=== PATIENT | male | born 1980 | race Caucasian/White ===

== ENCOUNTER → 2016-08-30 | Outpatient (CLI) | payer BC | LOC: CARD 14:53 | PROVIDERS: ATTEND Family Medicine | DX: R00.2 Palpitations (principal) | CPT/HCPCS: 93005 ==

== ENCOUNTER 2018-05-25 20:34 | Outpatient (CLI) | payer BC | END 2018-05-26 06:00 | disposition home or self-care (01) | LOC: SLEEP 20:34 | PROVIDERS: ATTEND Family Medicine | DX: G47.33 Obstructive sleep apnea (adult) (pediatric) (principal) | CPT/HCPCS: 95810 ==

== ENCOUNTER 2018-08-10 13:13 | Outpatient (RCR) | payer BC | END 2018-11-08 | disposition home or self-care (01) | LOC: CARD 13:13 | PROVIDERS: ATTEND Internal Medicine Interventional Cardiology | DX: I48.0 Paroxysmal atrial fibrillation (principal); R06.02 Shortness of breath; R00.2 Palpitations ==

== ENCOUNTER → 2018-08-10 | Outpatient (CLI) | payer BC | LOC: CARD 13:05 | PROVIDERS: ATTEND Internal Medicine Interventional Cardiology | DX: I48.0 Paroxysmal atrial fibrillation (principal); R06.02 Shortness of breath; R00.2 Palpitations | CPT/HCPCS: 93306 ==

== ENCOUNTER → 2018-09-28 | Day surgery (SDC) | payer BC ==
[~2018-09-28] VITALS: Ht 182.9 cm; Wt 108.9 kg
[~2018-09-28] MED LIST: LIDOCAINE 1% INJ 20 ML 20 ML VIAL INJ ONE; LIDOCAINE 1% INJ 20 ML 20 ML VIAL ONE
[2018-09-28 07:58] VITALS: BP 141/86
--- OUTSIDE RECORDS SUMMARY | 2018-09-28 08:52 | XMS REPORT | Continuity of Care Document ---
Author Organization Unknown Address Unknown Allergies Active Description Code Type Severity Reaction Onset Reported/Identified Relationship to Patient Clinical Status Yes Penicillins [id number] Drug Allergy Unknown N/A 08/05/2005 Medications There is no data. Problems Date Dx Coded Attending Type Code Diagnosis Diagnosed By 01/22/2015 GURINDER CORREA MD Ot R10.2 01/22/2015 GURINDER CORREA MD Ot R10.30 03/05/2015 GURINDER CORREA MD Ot R10.2 08/31/2016 GURINDER CORREA MD Ot R00.2 PALPITATIONS 09/08/2016 GURINDER CORREA MD Ot R00.2 PALPITATIONS 05/25/2018 GURINDER CORREA MD Ot R10.2 PELVIC AND PERINEAL PAIN 05/25/2018 GURINDER CORREA MD Ot R00.2 PALPITATIONS 05/26/2018 GURINDER CORREA MD Ot G47.33 OBSTRUCTIVE SLEEP APNEA (ADULT) (PEDIATR 05/29/2018 GURINDER CORREA MD Ot G47.33 OBSTRUCTIVE SLEEP APNEA (ADULT) (PEDIATR 05/31/2018 GURINDER CORREA MD Ot G47.33 OBSTRUCTIVE SLEEP APNEA (ADULT) (PEDIATR 08/17/2018 Pardeep CHOPRA MD Ot I48.0 PAROXYSMAL ATRIAL FIBRILLATION 08/17/2018 Pardeep CHOPRA MD Ot R00.2 PALPITATIONS 08/17/2018 Pardeep CHOPRA MD Ot R06.02 SHORTNESS OF BREATH 08/29/2018 Pardeep CHOPRA MD Ot I48.0 PAROXYSMAL ATRIAL FIBRILLATION 08/29/2018 Pardeep CHOPRA MD Ot R00.2 PALPITATIONS 08/29/2018 Pardeep CHOPRA MD Ot R06.02 SHORTNESS OF BREATH Procedures There is no data. Results There is no data. Encounters ACCT No. Visit Date/Time Discharge Status Pt. Type Provider Facility Loc./Unit Complaint [id number] 08/10/2018 13:13:00 08/10/2018 23:59:59 CLS Outpatient Pardeep CHOPRA MD [facility] CARD PALPITATIONS [id number] 08/10/2018 13:05:00 08/10/2018 23:59:59 CLS Outpatient Pardeep CHOPRA MD [facility] CARD PALPITATIONS [id number] 05/25/2018 20:34:00 05/26/2018 06:00:00 DIS Outpatient GURINDER CORREA MD [facility] SLEEP CHASTITY [id number] 08/30/2016 14:53:00 08/30/2016 23:59:59 CLS Outpatient GURINDER CORREA MD [facility] CARD CARDIAC PALPITATION [id number] 01/16/2015 14:12:00 01/16/2015 23:59:59 CLS Outpatient GURINDER CORREA MD [facility] RAD PELVIC/AB PAIN [id number] 09/02/2012 14:42:00 09/02/2012 23:59:59 CLS Outpatient [id number] 09/28/2018 08:30:00 PEN Preadmit Pardeep CHOPRA MD [facility] CATH PAF
[2018-09-28 09:05] VITALS: BP 142/78
--- NOTE | 2018-09-29 15:48 | Implantation of Loop Monitor ---
Implant of Loop Monitior PROCEDURE PHYSICIAN: Crys Chand MD IMPLANTATION OF LOOP MONITOR REPORT DATE OF PROCEDURE: 09/29/18 ATTENDING PHYSICIAN: Dr. Tico Chand. PERFORMING PHYSICIAN: Dr. Tico Chand. INDICATION: Long-term surveillance of atrial fibrillation PREOP DIAGNOSIS: Long-term surveillance of atrial fibrillation POSTOP DIAGNOSIS: Atrial fibrillation, s/p implantation of loop recorder. PROCEDURE DETAILS: The patient is a 37 male with history of paroxysmal atrial fibrillation requiring long-term surveillance. Therefore implantable loop recorder was discussed and agreed with the patient. Informed consent was taken. All risks and complications were discussed at length. The patient was draped and prepped in the usual sterile fashion. Local anesthesia was lidocaine, which was given in the substernal area close to the 4th intercostal space. Loop monitor was implanted according to the protocol. Steri-Strips were placed at the end of the procedure. There were no complications and the patient tolerated the procedure well. ANESTHESIA: Local anesthesia with lidocaine. COMPLICATIONS: None CONTRAST/FLUOROSCOPY: None CONCLUSION: 1. Successful implantation of loop monitor for long-term surveillance of atrial fibrillation. 2. No complication and the patient tolerated the procedure well. Crys Chand MD, [facility], CCDS Cardiac Electrophysiology Pardeep CHAND MD Sep 29, 2018 15:47
== END | disposition home or self-care (01) ==
LOC: CATH 07:36
PROVIDERS: ATTEND Internal Medicine Interventional Cardiology
DX: I48.0 Paroxysmal atrial fibrillation (principal); G47.30 Sleep apnea, unspecified; Z82.49 Family history of ischemic heart disease and other diseases of the circulatory system; Z88.0 Allergy status to penicillin; Z79.82 Long term (current) use of aspirin; Z79.899 Other long term (current) drug therapy
CPT/HCPCS: 33285

== ENCOUNTER 2019-06-03 23:06 | Observation (INO) | payer BC, OTHER ==
[~2019-06-03] VITALS: Ht 182 cm; Wt 110.6 kg
[2019-06-03] MEDS ORDERED: NS IV 1000 ML 1,000 ML IV SCH (23:18)
[2019-06-03] MEDS ORDERED: ASPIRIN 81 MG CHEW (CHILDREN'S ASA) PO ONE (23:30)
[2019-06-03] MEDS ORDERED: ENOXAPARIN 60 MG/0.6 ML (LOVENOX) SYR SC ONE (23:30)
[2019-06-03 23:39] VITALS: BP 119/77
[2019-06-03 23:39] LABS: BASOPHILS % (AUTO) 0 % (0-10); EOSINOPHILS # (AUTO) 0.2 10^3/uL (0.0-0.3); EOSINOPHILS % (AUTO) 2 % (0-10); HEMATOCRIT 45 % (40-54); HEMOGLOBIN 15.2 G/DL (13.3-17.7); LYMPHOCYTES # (AUTO) 2.9 X 10^3 (1.0-4.0); LYMPHOCYTES % (AUTO) 32 % (12-44); MEAN CORPUSCULAR HEMOGLOBIN 29 PG (25-34); MEAN CORPUSCULAR HGB CONC 34 G/DL (32-36); MEAN CORPUSCULAR VOLUME 84 FL (80-99); MEAN PLATELET VOLUME 9.7 FL (7.4-10.4); MONOCYTES # (AUTO) 0.8 X 10^3 (0.0-1.0); MONOCYTES % (AUTO) 9 % (0-12); NEUTROPHILS # (AUTO) 5.2 X 10^3 (1.8-7.8); NEUTROPHILS % (AUTO) 57 % (42-75); PLATELET COUNT 322 10^3/uL (130-400); RED CELL DISTRIBUTION WIDTH 12.7 % (10.0-14.5); WHITE BLOOD COUNT 9.1 10^3/uL (4.3-11.0)
[2019-06-03 23:53] LABS: ALANINE AMINOTRANSFERASE 23 U/L (0-55); ALBUMIN 4.9 GM/DL (3.2-4.5); ALKALINE PHOSPHATASE 108 U/L (40-136); BILIRUBIN,TOTAL 0.5 MG/DL (0.1-1.0); BUN/CREATININE RATIO 18; CALCIUM 9.6 MG/DL (8.5-10.1); CARBON DIOXIDE 24 MMOL/L (21-32); CHLORIDE 104 MMOL/L (98-107); CREATINE KINASE 128 U/L (30-200); CREATININE SERUM 0.93 MG/DL (0.60-1.30); GFR ESTIMATED > 60; GLUCOSE 106 MG/DL (70-105); MAGNESIUM 2.3 MG/DL (1.6-2.4); POTASSIUM 3.8 MMOL/L (3.6-5.0); PROTHROMBIN TIME PATIENT 13.5 SEC (12.2-14.7); SODIUM 140 MMOL/L (135-145); TOTAL PROTEIN 7.7 GM/DL (6.4-8.2)
[2019-06-03 23:56] LABS: BILIRUBIN,URINE NEGATIVE (NEGATIVE); CLARITY,URINE CLEAR; COLOR,URINE YELLOW; GLUCOSE, URINE (UA) NEGATIVE (NEGATIVE); KETONES,URINE NEGATIVE (NEGATIVE); LEUKOCYTE ESTERASE ,URINE NEGATIVE (NEGATIVE); NITRITE,URINE NEGATIVE (NEGATIVE); PH,URINE 6.5 (5-9); PROTEIN,URINE NEGATIVE (NEGATIVE)
[2019-06-04] VITALS (16 sets, daily range): BP systolic 92–126; BP diastolic 59–86
[2019-06-04 00:13] LABS: CREATINE KINASE MB 1.6 NG/ML (<6.6); TSH (THYROID ANALYZER) 4.91 UIU/ML (0.35-4.94)
[2019-06-04 00:15] LABS: AMPHETAMINE SCREEN, URINE NEGATIVE (NEGATIVE); BARBITURATE SCREEN URINE NEGATIVE (NEGATIVE); BENZODIAZEPINES SCREEN URINE NEGATIVE (NEGATIVE); CANNABINOID SCREEN, URINE NEGATIVE (NEGATIVE); COCAINE SCREEN URINE NEGATIVE (NEGATIVE); METHADONE STAT NEGATIVE (NEGATIVE); METHAMPHETAMINE SCREEN URINE S NEGATIVE (NEGATIVE); OPIATE SCREEN URINE NEGATIVE (NEGATIVE); OXYCODONE STAT NEGATIVE (NEGATIVE); PROPOXYPHENE STAT NEGATIVE (NEGATIVE); TRICYCLIC ANTIDEPRESSANTS SCRE NEGATIVE (NEGATIVE)
[2019-06-04] MEDS ORDERED: dilTIAZem DRIP PRE-MIX 125 ML IV SCH (00:15)
[2019-06-04 00:16] LABS: AMORPHOUS SEDIMENT,UR RARE AMOR URATES /LPF; BACTERIA,URINE NEGATIVE /HPF
[2019-06-04] MEDS ORDERED: 1/2 NS IV SOLUTION 1,000 ML IV ONE (01:33)
[2019-06-04] MEDS ORDERED: dilTIAZem DRIP 125 MG/125 ML DRIP IV SCH (02:15)
[2019-06-04] MEDS ORDERED: 1/2 NS IV SOLUTION 1,000 ML IV SCH (02:15)
--- OUTSIDE RECORDS SUMMARY | 2019-06-04 04:12 | XMS REPORT | Continuity of Care Document ---
Author Organization Unknown Address Unknown Phone Unavailable Allergies Active Description Code Type Severity Reaction Onset Reported/Identified Relationship to Patient Clinical Status Yes Penicillins [id number] Drug Aller gy Unknown N/A 08/05/2005 Medications There is no data. Problems Date Dx Coded Attending Type Code Diagnosis Diagnosed By 01/22/2015 GURINDER CORREA MD Ot R10. 2 01/22/2015 GURINDER CORREA MD, Ot R10. 30 03/05/2015 GURINDER CORREA MD Ot R10. 2 08/31/2016 GURINDER CORREA MD Ot R00. 2 PALPITATIONS 09/08/2016 GURINDER CORREA MD Ot R00. 2 PALPITATIONS 05/25/2018 GURINDER CORREA MD Ot R10. 2 PELVIC AND PERINEAL PAIN 05/25/2018 GURINDER CORREA MD Ot R00. 2 PALPITATIONS 05/26/2018 GURINDER CORREA MD, Ot G47. 33 OBSTRUCTIVE SLEEP APNEA (ADULT) (PEDIATR 05/29/2018 GURINDER CORREA MD, Ot G47. 33 OBSTRUCTIVE SLEEP APNEA (ADULT) (PEDIATR 05/31/2018 GURINDER CORREA MD, Ot G47. 33 OBSTRUCTIVE SLEEP APNEA (ADULT) (PEDIATR 08/17/2018 Pardeep CHOPRA MD Ot I48 .0 PAROXYSMAL ATRIAL FIBRILLATION 08/17/2018 Pardeep CHOPRA MD Ot R00 .2 PALPITATIONS 08/17/2018 Pardeep CHOPRA MD Ot R06.02 SHORTNESS OF BREATH 08/29/2018 Pardeep CHOPRA MD Ot I48 .0 PAROXYSMAL ATRIAL FIBRILLATION 08/29/2018 Pardeep CHOPRA MD Ot R00 .2 PALPITATIONS 08/29/2018 Pardeep CHOPRA MD Ot R06.02 SHORTNESS OF BREATH 11/08/2018 Pardeep CHOPRA MD Ot I48 .0 PAROXYSMAL ATRIAL FIBRILLATION 11/08/2018 KEYSHA JIANG, Pardeep PEÑA Ot R00 .2 PALPITATIONS 11/08/2018 Pardeep CHOPRA MD Ot R06.02 SHORTNESS OF BREATH 11/08/2018 Pardeep CHOPRA MD Ot G47.30 SLEEP APNEA, UNSPECIFIED 11/08/2018 KEYSHA JIANG, Pardeep PEÑA Ot I48 .0 PAROXYSMAL ATRIAL FIBRILLATION 11/08/2018 Pardeep CHOPRA MD Ot 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 11/08/2018 Pardeep CHOPRA MD Ot Z79.899 OTHER STANDARD MACHINE STITCHER (CURRENT) DRUG THERAPY 11/08/2018 Pardeep CHOPRA MD Ot Z82.49 FAMILY HX OF ISCHEM HEART DIS AND OTH DI 11/08/2018 Pardeep CHOPRA MD Ot Z88 .0 ALLERGY STATUS TO PENICILLIN 11/08/2018 Pardeep CHOPRA MD Ot G47.30 SLEEP APNEA, UNSPECIFIED 11/08/2018 Pardeep CHOPRA MD Ot I48 .0 PAROXYSMAL ATRIAL FIBRILLATION 11/08/2018 Pardeep CHOPRA MD Ot Z79.82 [facility] (CURRENT) USE OF ASPIRIN 11/08/2018 Pardeep CHOPRA MD Ot Z79.899 OTHER STANDARD MACHINE STITCHER (CURRENT) DRUG THERAPY 11/08/2018 Pardeep CHOPRA MD Ot Z82.49 FAMILY HX OF ISCHEM HEART DIS AND OTH DI 11/08/2018 Pardeep CHOPRA MD Ot Z88 .0 ALLERGY STATUS TO PENICILLIN 11/09/2018 Pardeep CHOPRA MD Ot I48 .0 PAROXYSMAL ATRIAL FIBRILLATION 11/09/2018 Pardeep CHOPRA MD Ot R00 .2 PALPITATIONS 11/09/2018 Pardeep CHOPRA MD Ot R06.02 SHORTNESS OF BREATH 11/22/2018 Pardeep CHOPRA MD Ot G47.30 SLEEP APNEA, UNSPECIFIED 11/22/2018 Pardeep CHOPRA MD Ot I48 .0 PAROXYSMAL ATRIAL FIBRILLATION 11/22/2018 Pardeep CHOPRA MD Ot 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 2 PELVIC AND PERINEAL PAIN 06/04/2019 GURINDER CORREA MD Ot R00. 2 PALPITATIONS 06/04/2019 Pardeep CHOPRA MD Ot I48 .0 PAROXYSMAL ATRIAL FIBRILLATION 06/04/2019 Pardeep CHOPRA MD Ot R00 .2 PALPITATIONS 06/04/2019 Pardeep CHOPRA MD Ot R06.02 SHORTNESS OF BREATH 06/04/2019 Pardeep CHOPRA MD Ot G47.30 SLEEP APNEA, UNSPECIFIED 06/04/2019 Pardeep CHOPRA MD Ot I48 .0 PAROXYSMAL ATRIAL FIBRILLATION 06/04/2019 Pardeep CHOPRA MD Ot Z79.82 [facility] (CURRENT) USE OF ASPIRIN 06/04/2019 Pardeep CHOPRA MD Ot Z79.899 OTHER STANDARD MACHINE STITCHER (CURRENT) DRUG THERAPY 06/04/2019 Pardeep CHOPRA MD Ot Z82.49 FAMILY HX OF ISCHEM HEART DIS AND OTH DI 06/04/2019 Pardeep CHOPRA MD Ot Z88 .0 ALLERGY STATUS TO PENICILLIN 06/04/2019 Pardeep CHOPRA MD Ot I48 .0 PAROXYSMAL ATRIAL FIBRILLATION 06/04/2019 Pardeep CHOPRA MD Ot R00 .2 PALPITATIONS 06/04/2019 Pardeep CHOPRA MD Ot R06.02 SHORTNESS OF BREATH Procedures There is no data. Results Test Result Range Complete blood count (CBC) with automate d white blood cell (WBC) differential - 06/03/19 23:15 Blood leukocytes automated count (number/volume) 9.1 10*3/uL 4.3-11.0 Blood erythrocytes automated count (number/volume) 5.33 10*6/uL 4.35-5.85 Venous blood hemoglobin measurement (mass/volume) 15.2 g/dL 13.3-17.7 Blood hematocrit (volume fraction) 45 % 40-54 Automated erythrocyte mean corpuscular volume 84 [ foz_us] 80-99 Automated erythrocyte mean corpuscular h emoglobin (mass per erythrocyte) 29 pg 25-34 Automated erythrocyte mean corpuscular h emoglobin concentration measurement (mass/volume) 34 g/dL 32-36 Automated erythrocyte distribution width ratio 12. 7 % 10.0- 14.5 Automated blood platelet count (count/volume) 322 10*3/uL 130-400 Automated blood platelet mean volume measurement 9.7 [foz_us] 7.4-10.4 Automated blood neutrophils/100 leukocytes 57 % 42-75 Automated blood lymphocytes/100 leukocytes 32 % 12-44 Blood monocytes/100 leukocytes 9 % 0-12 Automated blood eosinophils/100 leukocytes 2 % 0-10 Automated blood basophils/100 leukocytes 0 % 0-10 Blood neutrophils automated count (number/volume) 5.2 10*3 1.8-7.8 Blood lymphocytes automated count (number/volume) 2.9 10*3 1.0-4.0 Blood monocytes automated count (number/volume) 0. 8 10*3 0.0-1.0 Automated eosinophil count 0.2 10*3/uL 0 .0-0.3 Automated blood basophil count (count/volume) 0.0 10*3/uL 0.0-0.1 Comprehensive metabolic panel - 06/03/19 23:15 Serum or plasma sodium measurement (moles/volume) 140 mmol/L 135-145 Serum or plasma potassium measurement (moles/volume) 3.8 mmol/L 3.6-5.0 Serum or plasma chloride measurement (moles/volume) 104 mmol/L 98-107 Carbon dioxide 24 mmol/L 21-32 Serum or plasma anion gap determination (moles/volume) 12 mmol/L 5-14 Serum or plasma urea nitrogen measurement (mass/volume ) 17 mg/dL 7-18 Serum or plasma creatinine measurement (mass/volume) 0.93 mg/dL 0.60-1.30 Serum or plasma urea nitrogen/creatinine mass ratio 18 NRG Serum or plasma creatinine measurement w ith calculation of estimated glomerular filtration rate > NRG Serum or plasma glucose measurement (mass/volume) 106 mg/dL 70-105 Serum or plasma calcium measurement (mass/volume) 9.6 mg/dL 8.5-10.1 Serum or plasma total bilirubin measurement (mass/volu me) 0.5 mg/dL 0.1-1.0 Serum or plasma alkaline phosphatase dejah surement (enzymatic activity/volume) 108 U/L 40-136 Serum or plasma aspartate aminotransfera se measurement (enzymatic activity/volume) 16 U/L 5-34 Serum or plasma alanine aminotransferase measurement (enzymatic activity/volume) 23 U/L 0-55 Serum or plasma protein measurement (mass/volume) 7.7 g/dL 6.4-8.2 Serum or plasma albumin measurement (mass/volume) 4.9 g/dL 3.2-4.5 Magnesium - 06/03/19 23:15 Magnesium 2.3 mg/dL 1.6-2.4 Serum or plasma creatine kinase measurem ent (enzymatic activity/volume) - 06/03/19 23:15 Serum or plasma creatine kinase measurem ent (enzymatic activity/volume) 128 U/L 30-200 PT panel in platelet poor plasma by coag ulation assay - 06/03/19 23:15 Prothrombin time (PT) in platelet poor plasma by coagu lation assay 13.5 s 12.2-14.7 INR in platelet poor plasma or blood by coagulation as say 1.0 0.8-1.4 Activated partial thromboplastin time (a PTT) in platelet poor plasma bycoagulation assay - 06/03/19 23:15 Activated partial thromboplastin time (a PTT) in platelet poor plasma bycoagulation assay 28 s 24-35 Serum or plasma creatine kinase MB measu rement (enzymatic activity/volume) - 06/03/19 23:15 Serum or plasma creatine kinase MB measu rement (enzymatic activity/volume) 1.6 ng/mL <6.6 Serum or plasma troponin i.cardiac measu rement (mass/volume) - 06/03/19 23:15 Serum or plasma troponin i.cardiac measurement (mass/v olume) < ng/mL <0.028 Myoglobin, serum - 06/03/19 23:15 Myoglobin, serum 35.0 ng/mL 10.0-92.0 Serum or plasma thyrotropin measurement by detection limit <=0.05 miu/l (units/volume) - 06/03/19 23:15 Serum or plasma thyrotropin measurement by detection limit <=0.05 miu/l (units/volume) 4.91 u[iU]/mL 0.35-4.94 Serum or plasma lithium measurement (mol es/volume) - 06/03/19 23:15 BNP PT < 10.0 <100.0 Urine drug screening test - 06/03/19 23: 44 Urine phencyclidine detection by screening method NEGATIVE NEGATIVE Urine benzodiazepines detection by screening method NEGATIVE NEGATIVE Urine cocaine detection NEGATIVE NEGATI VE Urine amphetamines detection by screening method N EGATIVE NEGATIVE Urine methamphetamine detection by screening method NEGATIVE NEGATIVE Urine cannabinoids detection by screening method N EGATIVE NEGATIVE Urine opiates detection by screening method NEGATI VE NEGATIVE Urine barbiturates detection NEGATIVE N EGATIVE Screening urine tricyclic antidepressants detection NEGATIVE NEGATIVE Urine methadone detection by screening method NEGA TIVE NEGATIVE Urine oxycodone detection NEGATIVE NEGA TIVE Urine propoxyphene detection NEGATIVE N EGATIVE Complete urinalysis with reflex to cultu re - 06/03/19 23:44 Urine color determination YELLOW NRG Urine clarity determination CLEAR NR G Urine pH measurement by test strip 6.5 5-9 Specific gravity of urine by test strip <= 1.016-1.022 Urine protein assay by test strip, semi-quantitative NEGATIVE NEGATIVE Urine glucose detection by automated test strip NE GATIVE NEGATIVE Erythrocytes detection in urine sediment by light micr oscopy NEGATIVE NEGATIVE Urine ketones detection by automated test strip NE GATIVE NEGATIVE Urine nitrite detection by test strip NEGATIVE NEGATIVE Urine total bilirubin detection by test strip NEGA TIVE NEGATIVE Urine urobilinogen measurement by automated test strip (mass/volume) 0.2 mg/dL < = 1.0 Urine leukocyte esterase detection by dipstick NEG ATIVE NEGATIVE Automated urine sediment erythrocyte cou nt by microscopy (number/high power field) NONE NRG Automated urine sediment leukocyte count by microscopy (number/high power field) NONE NRG Bacteria detection in urine sediment by light microsco py NEGATIVE NRG Crystals detection in urine sediment by light microsco py PRESENT NRG Casts detection in urine sediment by light microscopy NONE NRG Mucus detection in urine sediment by light microscopy NEGATIVE NRG Complete urinalysis with reflex to culture NO NRG Amorphous sediment detection in urine sediment by ligh t microscopy RARE CRISTIAN URATES NRG Encounters ACCT No. Visit Date/Time Discharge Status Pt. Type Provider Facility Loc./Unit Complaint [id number] 11/09/2018 00:11:00 23:59:59 CLS Preadmit Pardeep CHOPRA MD [facility] CARD PALPITATIONS [id number] 08/10/2018 13:13:00 00:01:00 DIS Outpatient Pardeep CHOPRA MD [facility] CARD PALPITATIONS [id number] 09/28/2018 07:36:00 23:59:59 CLS Outpatient Pardeep CHOPRA MD [facility] CATH PAF [id number] 08/10/2018 13:05:00 23:59:59 CLS Outpatient Pardeep CHOPRA MD [facility] CARD PALPITATIONS [id number] 05/25/2018 20:34:00 019 06:00:00 DIS Outpatient GURINDER CORREA MD [facility] SLEEP CHASTITY [id number] 08/30/2016 14:53:00 017 23:59:59 CLS Outpatient GURINDER CORREA MD [facility] CARD CARDIAC PALPITATION [id number] 01/16/2015 14:12:00 015 23:59:59 CLS Outpatient GURINDER CORREA MD [facility] RAD PELVIC/AB PAIN [id number] 09/02/2012 14:42:00 013 23:59:59 CLS Outpatient [id number] 06/04/2019 00:15:[address] Inpatient MICHEL ZAPATA MD [facility] ICU ATRIAL FIB WITH RVR
--- OUTSIDE RECORDS SUMMARY | 2019-06-04 04:12 | XMS REPORT ---
Author Author [employer] [facility] [employer] Address [address] [address] Care Team Providers Care Plane Captain Name Role Phone GURINDER CORREA PCP GURINDER CORREA MD Unavailable Unavailable Pardeep CHOPRA MD Unavailable Unavailable Allergies Normalized Allergy Reported Date of Reaction(s) Care Provider Facility Allergy Type classification allergen Allergy Onset Drug Allergy Penicillins Penicillins 08-05-2005 - Penicillins D NIKOLE CORREA , Not Available (21 sources.) (antibiotic) Translations: ([id number]) (78605) [ Penicillins] Medications The data below is from unstructured sourcesNo medication information available.No medication information available.No medication information available. Problems Active Problems Problem Normalized Date of Normalized Normalized Provider Fac ility Classification Problem(s) Problem Problem Problem Sta tus Onset/Resoluti Duration on Residual Obstructive Chronic Active GURINDER CORREA , Not A vailable codes; sleep apnea (44682) unclassified (adult) (3 sources.) (pediatric) Cardiac Paroxysmal Chronic Active MD KEYSHA [facility] Via dysrhythmias atrial [place] (10 sources.) fibrillation [facility] [place] ([address]) Cardiac Paroxysmal no information Active MD MARILYNN CHOPRA Via dysrhythmias atrial [place] (2 sources.) fibrillation Hospital - Translations: [place] [ (89585) PALPITATIONS] Other lower Shortness of Episodic Active MD MARILYNN CHOPRA V ia respiratory breath [place] disease (7 Hospital - sources.) [place] ([address]) Residual Sleep apnea, Chronic Active MD MARILYNN CHOPRA Via codes; unspecified [place] unclassified Hospital - (3 sources.) [place] ([address]) Past or Other Problems Problem Normalized Date of Normalized Normalized Provider Fac ility Classification Problem(s) Problem Problem Problem Sta tus Onset/Resoluti Duration on Allergic Allergy status Episodic Completed MD MARILYNN CHOPRA V ia reactions (4 to penicillin [place] sources.) [facility] ([address]) Residual Family history Episodic Completed MD MARILYNN CHOPRA V ia codes; of ischemic [facility] [place] unclassified heart disease Hospital - (4 sources.) and other [place] diseases of ([address]) the circulatory system 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 Episodic Completed MD MARILYNN CHOPRA Via aftercare (4 (current) use [place] sources.) of aspirin [facility] () Other Other long Episodic Completed MD MARILYNN CHOPRA Via aftercare (4 term (current) [place] sources.) drug therapy [facility] (367[address]) Cardiac Palpitations Episodic Completed GURINDER CORREA , Not Available dysrhythmias () (8 sources.) Abdominal pain Pelvic and no information no information GURINDER CORREA , Not Available (1 source.) perineal pain () Residual Sleep apnea, no information no information Pardeep CHOPRA [facility] Via codes; unspecified [facility] [place] unclassified [facility] - (1 source.) [place] ([address]) Procedures The data below is from unstructured sourcesNo procedure information available.No procedure information available.No procedure information available. Immunizations Normalized Immunization Date Notes Care Provider Facili ty Immunization vaccine no information GURINDER CORREA [address] [facility] ia Translations: [ [facility] vaccine] (275[address]) Results The data below is from unstructured sourcesNo relevant diagnostic test, laboratory data and/or discharge summary information available.No relevant diagnostic test, laboratory data and/or discharge summary information available.No relevant diagnostic test, laboratory data and/or disc harge summary information available. Vital Signs The data below is from unstructured sourcesNo vital sign information available.No vital sign information available.No vital sign information available. Interventions No Information Plan of Treatment The data below is from unstructured sources Discharge Date 05/26/18 6:00am Prescriptions See Medication Section Prescriptions See Medication Section Prescriptions See Medication Section Goals No Information Social History Normalized Code Original Code Date Value no information no information no information Unknown if ever smoked Functional Status The data below is from unstructured sourcesNo functional status information available.No functional status information available.No functional status information available. Mental Status No Information Encounters Encounter Normalized Encounter Encounter Diagnosis Care Provi carmela Organization Date Type 08-10-2018 Discharged Recurring no information Pardeep CHOPRA Work no organization name - (no phone) 11-09-2018 11-08-2018 Patient encounter no information no name (no phone) no organization name procedure (no phone) 09-28-2018 Patient encounter no information no name (no phone) no organization name procedure (no phone) 09-28-2018 Patient encounter no information no name (no phone) no organization name procedure (no phone) 08-10-2018 Patient encounter no information no name (no phone) no organization name procedure (no phone) 08-10-2018 Patient encounter no information no name (no phone) no organization name - procedure (no phone) 11-07-2018 05-25-2018 Patient encounter no information GURINDER Vincent k no organization name - procedure (no phone ) 05-26-2018 08-30-2016 Patient encounter no information no name (no phone) no organization name procedure (no phone) 01-16-2015 Patient encounter no information no name (no phone) no organization name procedure (no phone) Medical Equipment No Information Payers Normalized Payer Value [facility] [id number] ([id number]) Advance Directives Directive Response Recor ded Date/Time Advance Directives No 7:49am Health Care Power of Washing Tub Operator No 09/28/18 7:49am Organ Donor No 09/28/18 7:49am Discharge Instructions No hospital discharge instruction information available.No hospital discharge instruction information available. Additional Source Comments This clinical document has been generated using [employer] software that has been certified by the Office of the National Coordinator for Health Information Technology (ONC 15.99.04.3023.Diam.31.00.0.929201) and the National Committee for Industrial Mechanic (NCQA, as an eMeasure certified technology). FOR RECORDS PERTAINING TO PATIENTS WHO ARE OR HAVE BEEN ENROLLED IN A CHEMICAL D EPENDENCY/SUBSTANCE ABUSE PROGRAM, SOME INFORMATION MAY BE OMITTED. This clinica l summary was aggregated from multiple sources. Caution should be exercised in using it in the provision of clinical care. This summary normalizes information from multiple sources, and as a consequence, information in this document may ma terially change the coding, format and clinical context of patient data. In katy tion, data may be omitted in some cases. CLINICAL DECISIONS SHOULD BE BASED ON T HE PRIMARY CLINICAL RECORDS. [facility] [employer] [facility]. provides no warranty or guara ntee of the accuracy or completeness of information in this document.The followi ng information is based on time limited clinical information
[2019-06-04 04:17] LABS: BASOPHILS % (AUTO) 0 % (0-10); EOSINOPHILS # (AUTO) 0.1 10^3/uL (0.0-0.3); EOSINOPHILS % (AUTO) 2 % (0-10); HEMATOCRIT 42 % (40-54); LYMPHOCYTES # (AUTO) 2.4 X 10^3 (1.0-4.0); LYMPHOCYTES % (AUTO) 36 % (12-44); MEAN CORPUSCULAR HEMOGLOBIN 28 PG (25-34); MEAN CORPUSCULAR HGB CONC 33 G/DL (32-36); MEAN CORPUSCULAR VOLUME 84 FL (80-99); MEAN PLATELET VOLUME 9.8 FL (7.4-10.4); MONOCYTES # (AUTO) 0.6 X 10^3 (0.0-1.0); MONOCYTES % (AUTO) 9 % (0-12); NEUTROPHILS # (AUTO) 3.5 X 10^3 (1.8-7.8); NEUTROPHILS % (AUTO) 53 % (42-75); PLATELET COUNT 289 10^3/uL (130-400); RED CELL DISTRIBUTION WIDTH 12.9 % (10.0-14.5); WHITE BLOOD COUNT 6.5 10^3/uL (4.3-11.0)
[2019-06-04 04:38] LABS: ALANINE AMINOTRANSFERASE 20 U/L (0-55); ALBUMIN 4.2 GM/DL (3.2-4.5); ALKALINE PHOSPHATASE 92 U/L (40-136); BILIRUBIN,TOTAL 0.5 MG/DL (0.1-1.0); BUN/CREATININE RATIO 18; CALCIUM 8.7 MG/DL (8.5-10.1); CARBON DIOXIDE 22 MMOL/L (21-32); CHLORIDE 107 MMOL/L (98-107); CREATININE SERUM 0.79 MG/DL (0.60-1.30); GFR ESTIMATED > 60; GLUCOSE 98 MG/DL (70-105); SODIUM 140 MMOL/L (135-145); TOTAL PROTEIN 6.6 GM/DL (6.4-8.2)
--- NOTE | 2019-06-04 05:58 | Diagnostic Imaging Report ---
Indication: Irregular heartbeat Portable chest 12:41 AM There is a loop recorder projecting over the left lower chest. Heart size and pulmonary vascularity are normal. Lungs are clear. There are no effusions or pneumothoraces. IMPRESSION: No acute abnormalities in the chest Dictated by: Dictated on workstation # [id number]
--- NOTE | 2019-06-04 07:10 | ED Cardiac General ---
History of Present Illness General Chief Complaint: Cardiac/General Problems Stated Complaint: ATRIAL FIB WITH RVR Nursing Triage Note: irregular heart beat, afib shortness of breath dizziness, weakness Source: patient History of Present Illness Date Seen by Provider: Jun 03, 2019 Time Seen by Provider: 23:15 Initial Comments PT ARRIVES VIA POV FROM HOME WITH STATES HE HAS A HISTORY OF ATRIAL FIBRILLATION AND HAS BEEN ON MULTAQ AND METOPROLOL FOR AT LEAST A YEAR STATES HIS INSURANCE CHANGED AND THEY WILL NOT COVER THE MULTAQ AND HE RAN OUT 5-6 DAYS AGO. PT HAS BEEN TAKING ONLY 25 MG OF METOPROLOL ( RX IS FOR 50 MG) STATES HE CALLED DR. CHOPRA'S NURSE ABOUT GETTING A DIFFERENT MEDICATION TO REPLACE MULTAQ, BUT WAS TOLD TO JUST WAIT AND SEE PT STATES TONIGHT AROUND 1800 WHEN HE GOT OFF WORK, HE NOTICED SOME IRREGULAR BEATS--STATES IT FELT LIKE PVC'S. 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 HAS LOOP RECORDER IN PLACE PT DOES NOT TAKE ANY BLOOD THINNERS, BUT TOOK 650 MG OF ASPIRIN THIS EVENING WHEN SYMPTOMS BEGAN PCP: DR. 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 CHOPRA--SEEN ABOUT 3 MONTHS AGO AND NEXT APPOINTMENT IS IN SEPTEMBER FOR 6 MONTH FOLLOW UP Allergies and Home Medications Allergies Coded Allergies: Penicillins (Verified Allergy, Unknown, 08/05/05) Patient Home Medication List Home Medication List Reviewed: Yes Review of Systems Review of Systems Constitutional: see HPI; No chills, No diaphoresis; dizziness; No fever; malaise, weakness EENTM: No Symptoms Reported Respiratory: See HPI; Denies Cough; Shortness of Air Cardiovascular: See HPI; Denies Chest Pain, Denies Edema; Irregular Heart Rate, Lightheadedness, Palpitations; Denies Syncope Gastrointestinal: No Symptoms Reported; Denies Abdominal Pain, Denies Nausea, Denies Vomiting Genitourinary: No Symptoms Reported Musculoskeletal: no symptoms reported; No back pain Skin: no symptoms reported Psychiatric/Neurological: No Symptoms Reported Endocrine: No Symptoms Reported Hematologic/Lymphatic: No Symptoms Reported Past [id number]-Upivfq-Gsuerd Hx Past Med/Social Hx: Reviewed and Corrections made Patient Social History Alcohol Use: Occasionally Uses Recreational Drug Use: No Smoking Status: Never a Smoker 2nd Hand Smoke Exposure: No Recent Foreign Travel: No Contact w/Someone Who Travel: No Recent Infectious Disease Expo: No Recent Hopitalizations: No Physical Abuse: No Sexual Abuse: No Mistreated: No Fear: No Seasonal Allergies Seasonal Allergies: No Past Medical History Surgeries: Yes (LOOP RECORDER DEVICE IN PLACE) Respiratory: No Currently Using CPAP: No Currently Using BIPAP: No Cardiac: Yes Atrial Fibrillation Neurological: No Genitourinary: No Gastrointestinal: No Musculoskeletal: No Endocrine: No HEENT: No Cancer: No Psychosocial: No Integumentary: No Blood Disorders: No Physical Exam Vital Signs Vital Signs - First Documented 06/03/19 23:14 Temp 36.4 Pulse 129 Resp 18 B/P (MAP) 129/105 (113) Pulse Ox 95 O2 Delivery Room Air Capillary Refill : Less Than 3 Seconds Height, Weight, BMI Height: 6'0.00" Weight: 240lbs. 0.0oz. 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 Norm as Tested Skin: Normal Color, Warm/Dry Progress/Results/Core Measures Results/Orders Lab Results Laboratory Tests Test 06/03/19 23:15 06/03/19 23:44 Range/Units White Blood Count 9.1 4.3-11.0 10^3/uL Red Blood Count 5.33 4.35-5.85 10^6/uL Hemoglobin 15.2 13.3-17.7 G/DL Hematocrit 45 40-54 % Mean Corpuscular Volume 84 80-99 FL Mean Corpuscular Hemoglobin 29 25-34 PG Mean Corpuscular Hemoglobin Concent 34 32-36 G/DL Red Cell Distribution Width 12.7 10.0-14.5 % Platelet Count 322 130-400 10^3/uL Mean Platelet Volume 9.7 7.4-10.4 FL Neutrophils (%) (Auto) 57 42-75 % Lymphocytes (%) (Auto) 32 12-44 % Monocytes (%) (Auto) 9 0-12 % Eosinophils (%) (Auto) 2 0-10 % Basophils (%) (Auto) 0 0-10 % Neutrophils # (Auto) 5.2 1.8-7.8 X 10^3 Lymphocytes # (Auto) 2.9 1.0-4.0 X 10^3 Monocytes # (Auto) 0.8 0.0-1.0 X 10^3 Eosinophils # (Auto) 0.2 0.0-0.3 10^3/uL Basophils # (Auto) 0.0 0.0-0.1 10^3/uL Prothrombin Time 13.5 12.2-14.7 SEC INR Comment 1.0 0.8-1.4 Activated Partial Thromboplast Time 28 24-35 SEC Sodium Level 140 135-145 MMOL/L Potassium Level 3.8 3.6-5.0 MMOL/L Chloride Level 104 98-107 MMOL/L Carbon Dioxide Level 24 21-32 MMOL/L Anion Gap 12 5-14 MMOL/L Blood Urea Nitrogen 17 7-18 MG/DL Creatinine 0.93 0.60-1.30 MG/DL Estimat Glomerular Filtration Rate > 60 BUN/Creatinine Ratio 18 Glucose Level 106 H 70-105 MG/DL Calcium Level 9.6 8.5-10.1 MG/DL Corrected Calcium 8.5-10.1 MG/DL Magnesium Level 2.3 1.6-2.4 MG/DL Total Bilirubin 0.5 0.1-1.0 MG/DL Aspartate Amino Transf (AST/SGOT) 16 5-34 U/L Alanine Aminotransferase (ALT/SGPT) 23 0-55 U/L Alkaline Phosphatase 108 40-136 U/L Total Creatine Kinase 128 30-200 U/L Creatine Kinase MB 1.6 <6.6 NG/ML Myoglobin 35.0 10.0-92.0 NG/ML Troponin I < 0.028 <0.028 NG/ML B-Type Natriuretic Peptide < 10.0 <100.0 PG/ML Total Protein 7.7 6.4-8.2 GM/DL Albumin 4.9 H 3.2-4.5 GM/DL TSH [place] Testing 4.91 0.35-4.94 UIU/ML Urine Color YELLOW Urine Clarity CLEAR Urine pH 6.5 5-9 Urine Specific [place] <=1.005 1.016-1.022 Urine Protein NEGATIVE NEGATIVE Urine Glucose (UA) NEGATIVE NEGATIVE Urine Ketones NEGATIVE NEGATIVE Urine Nitrite NEGATIVE NEGATIVE Urine Bilirubin NEGATIVE NEGATIVE Urine Urobilinogen 0.2 < = 1.0 MG/DL Urine Leukocyte Esterase NEGATIVE NEGATIVE Urine RBC (Auto) NEGATIVE NEGATIVE Urine RBC NONE /HPF Urine WBC NONE /HPF Urine Crystals PRESENT H /LPF Urine Amorphous Sediment RARE CRISTIAN URATES H /LPF Urine Bacteria NEGATIVE /HPF Urine Casts NONE /LPF Urine Mucus NEGATIVE /LPF Urine Culture Indicated NO Urine Opiates Screen NEGATIVE NEGATIVE Urine Oxycodone Screen NEGATIVE NEGATIVE Urine Methadone Screen NEGATIVE NEGATIVE Urine Propoxyphene Screen NEGATIVE NEGATIVE Urine Barbiturates Screen NEGATIVE NEGATIVE Ur Tricyclic Antidepressants Screen NEGATIVE NEGATIVE Urine Phencyclidine Screen NEGATIVE NEGATIVE Urine Amphetamines Screen NEGATIVE NEGATIVE Urine Methamphetamines Screen NEGATIVE NEGATIVE Urine Benzodiazepines Screen NEGATIVE NEGATIVE Urine Cocaine Screen NEGATIVE NEGATIVE Urine Cannabinoids Screen NEGATIVE NEGATIVE My Orders Orders - BEST MANCINI DO Ed Iv/Invasive Line Start (06/03/19 23:18) Ekg Tracing (06/03/19 23:18) O2 (06/03/19 23:18) Monitor-Rhythm Ecg Trace Only (06/03/19 23:18) BNP (06/03/19 23:18) Cbc With Automated Diff (06/03/19 23:18) Comprehensive Metabolic Panel (06/03/19 23:18) Creatine Kinase (06/03/19 23:18) Creatine Kinase Mb (06/03/19 23:18) Drug Screen Stat (Urine) (06/03/19 23:18) Magnesium (06/03/19 23:18) Protime With Inr (06/03/19 23:18) Partial Thromboplastin Time (06/03/19 23:18) Thyroid Analyzer (06/03/19 23:18) Ua Culture If Indicated (06/03/19 23:18) Myoglobin Serum (06/03/19 23:18) Troponin I (06/03/19 23:18) Ed Iv/Invasive Line Start (06/03/19 23:18) Ns Iv 1000 Ml (Sodium Chloride 0.9%) (06/03/19 23:18) Aspirin Chewable Tablet (Baby Aspirin Ch (06/03/19 23:30) Diltiazem Injection (Cardizem Injection) (06/03/19 23:30) Enoxaparin Injection (Lovenox Injection) (06/03/19 23:30) Diltiazem Drip Pre-Mix (Cardizem Drip Pr (06/04/19 00:15) Medications Given in ED Current Medications Medications Dose Ordered Sig/Gino Route Start Time Stop Time Status Last Admin Dose Admin Diltiazem HCl 20 mg ONCE ONCE IVP 06/03/19 23:30 06/03/19 23:31 DC 06/03/19 23:29 20 MG Enoxaparin Sodium 120 mg ONCE ONCE SC 06/03/19 23:30 06/03/19 23:31 DC 06/03/19 23:36 120 MG Vital Signs/I&O 06/03/19 06/03/19 23:14 23:39 Temp 36.4 Pulse 129 84 Resp 18 17 B/P (MAP) 129/105 (113) 119/77 (91) Pulse Ox 95 97 O2 Delivery Room Air Room Air Blood Pressure Mean: 73 Progress Progress Note : Progress Note RATE SLOWED WITH CARDIZEM 20 MG BOLUS, BUT NO CONVERSION TO NSR CARDIZEM DRIP STARTED WITH CONTINUED RATE CONTROL IN 70'S-80'S BLOOD PRESSURE REMAINED NORMAL NO DETERIORATION IN PT'S CONDITION DURING ER STAY Initial ECG Impression Date: Jun 03, 2019 Initial ECG Impression Time: 23:14 Initial ECG Rate: 130 Initial ECG Impression: Atrial Fibrillation w/RVR EKG : EKG Time: 00:17 Rate: 89 Rhythm: A Fib/Flutter Diagnostic Imaging Comments CXR--NO ACUTE PROCESS, PENDING RADIOLOGIST REVIEW Reviewed: Reviewed by Me Departure Communication (Admissions) 0017--SPOKE WITH DR. 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 ACCEPTS PT FOR ADMIT. Impression Primary Impression: Atrial fibrillation with RVR Disposition: ADMITTED INPATIENT Condition: Improved Admissions Decision to Admit Reason: Admit from ER (General) Decision to Admit/Date: Jun 04, 2019 Time/Decision to Admit Time: 00:15 Departure-Patient Inst. Referrals: GURINDER CORREA MD (PCP) Primary Care Physician BEST MANCINI DO Jun 04, 2019 07:10
[2019-06-04] MEDS ORDERED: meTOproloL SUCCINATE 50 MG (TOPROL XL) TAB PO SCH (09:00)
[2019-06-04] MEDS ORDERED: ASPIRIN E.C. 325 MG (ECOTRIN) TABLET PO SCH (09:00)
[2019-06-04] MEDS ORDERED: METO50TA7 PO (10:31)
[2019-06-04] MEDS ORDERED: ASPI-983 PO (10:32)
[2019-06-04] MEDS ORDERED: ENOXAPARIN 300 MG/3 ML (LOVENOX) MULTI-DOSE VIAL SQ SCH (11:00)
[2019-06-04] MEDS ORDERED: ENOXAPARIN 60 MG/0.6 ML (LOVENOX) SYR SC SCH (11:00)
--- NOTE | 2019-06-04 11:00 | NUR ---
SPOKE WITH THE PT, WENT THRU THE EXT MED HISTORY AND CALLED [facility] TO COMPLETE THE MED REC. PT SAYS THE ONLY MEDICATION HE IS TAKING IS METOPROLOL AND RECENTLY QUIT TAKING MULTAQ AFTER SPEAKING WITH THE ART GILDER (PT QUIT TAKING DUE TO THE COST) OTC MEDS: ASPIRIN 81 - PRN
[2019-06-04] MEDS ORDERED: dilTIAZem120 MG (CARDIZEM CD) CAP PO SCH (11:10)
--- NOTE | 2019-06-04 13:23 | Consultation-Cardiology ---
HPI-Cardiology Cardiology Consultation: Date of Consultation 06/04/19 Date of Admission Attending Physician Na Duran MD Admitting Physician Wilbert Casarez MD Consulting Physician Pardeep CHAND MD HPI: Time Seen by a Provider: 13:23 [id number] Hx Patient Social History Alcohol Use: Occasionally Uses Recreational Drug Use: No Smoking Status: Never a Smoker 2nd Hand Smoke Exposure: No Recent Foreign Travel: No Recent Infectious Disease Expo: No Hospitalization with Isolation: Denies Past Medical History PMH As described under Assessment. Allergies and Home Medications Allergies Coded Allergies: Penicillins (Verified Allergy, Unknown, 08/05/05) Home Medications Aspirin 81 Mg Tablet.dr, 81 MG PO DAILY PRN for CHEST PAIN, (Reported) Aspirin 325 Mg Tablet.dr, 325 MG PO DAILY Prescribed by: ADIA GHOTRA on 06/04/19 1331 Flecainide Acetate 50 Mg Tablet, 50 MG PO BID Prescribed by: ADIA GHOTRA on 06/04/19 1331 Metoprolol Succinate 50 Mg Tab.er.24h, 50 MG PO DAILY, (Reported) Physical Exam-Cardiology Physical Exam Vital Signs/I&O 06/04/19 06/04/19 06/04/19 06/04/19 01:45 01:56 02:00 02:15 Pulse 76 81 84 Resp 28 13 B/P (MAP) 112/80 (91) 102/69 (80) 103/84 (90) Pulse Ox 98 97 96 95 O2 Delivery Room Air Room Air Room Air Room Air 06/04/19 06/04/19 06/04/19 06/04/19 02:30 02:45 03:00 03:31 Pulse 82 70 80 Resp 12 B/P (MAP) 103/73 (83) 92/67 (75) 102/73 (83) Pulse Ox 97 96 97 95 O2 Delivery Room Air Room Air Room Air Room Air 06/04/19 06/04/19 06/04/19 06/04/19 04:00 05:00 06:00 07:00 Pulse 73 92 75 89 Resp 17 22 B/P (MAP) 108/65 (79) 106/64 (78) 95/62 (73) 126/86 (99) Pulse Ox 96 97 O2 Delivery Room Air Room Air Room Air Room Air 06/04/19 06/04/19 06/04/19 06/04/19 07:00 08:00 08:00 08:00 Temp 36.4 Pulse 85 88 B/P (MAP) 117/82 (94) Pulse Ox 98 O2 Delivery Room Air Room Air 06/04/19 06/04/19 06/04/19 06/04/19 09:00 10:00 12:00 12:09 Temp 36.6 Pulse 79 86 80 97 Resp 20 B/P (MAP) 107/65 (79) 99/59 (72) 110/76 (87) Pulse Ox 99 O2 Delivery Room Air Room Air Room Air Capillary Refill : Less Than 3 Seconds Data Review Labs Laboratory Tests 06/03/19 23:15: White Blood Count 9.1, Red Blood Count 5.33, Hemoglobin 15.2, Hematocrit 45, Mean Corpuscular Volume 84, Mean Corpuscular Hemoglobin 29, Mean Corpuscular Hemoglobin Concent 34, Red Cell Distribution Width 12.7, Platelet Count 322, Mean Platelet Volume 9.7, Neutrophils (%) (Auto) 57, Lymphocytes (%) (Auto) 32, Monocytes (%) (Auto) 9, Eosinophils (%) (Auto) 2, Basophils (%) (Auto) 0, Neutrophils # (Auto) 5.2, Lymphocytes # (Auto) 2.9, Monocytes # (Auto) 0.8, Eosinophils # (Auto) 0.2, Basophils # (Auto) 0.0, Prothrombin Time 13.5, INR Comment 1.0, Activated Partial Thromboplast Time 28, Sodium Level 140, Potassium Level 3.8, Chloride Level 104, Carbon Dioxide Level 24, Anion Gap 12, Blood Urea Nitrogen 17, Creatinine 0.93, Estimat Glomerular Filtration Rate > 60, BUN/Creatinine Ratio 18, Glucose Level 106H, Calcium Level 9.6, Corrected Calcium , Magnesium Level 2.3, Total Bilirubin 0.5, Aspartate Amino Transf (AST/SGOT) 16, Alanine Aminotransferase (ALT/SGPT) 23, Alkaline Phosphatase 108, Total Creatine Kinase 128, Creatine Kinase MB 1.6, Myoglobin 35.0, Troponin I < 0.028, B-Type Natriuretic Peptide < 10.0, Total Protein 7.7, Albumin 4.9H, TSH [place] Testing 4.91 06/03/19 23:44: Urine Color YELLOW, Urine Clarity CLEAR, Urine pH 6.5, Urine Specific [place] <=1.005, Urine Protein NEGATIVE, Urine Glucose (UA) NEGATIVE, Urine Ketones NEGATIVE, Urine Nitrite NEGATIVE, Urine Bilirubin NEGATIVE, Urine Urobilinogen 0.2, Urine Leukocyte Esterase NEGATIVE, Urine RBC (Auto) NEGATIVE, Urine RBC NONE, Urine WBC NONE, Urine Crystals PRESENTH, Urine Amorphous Sediment RARE CRISTIAN URATESH, Urine Bacteria NEGATIVE, Urine Casts NONE, Urine Mucus NEGATIVE, Urine Culture Indicated NO, Urine Opiates Screen NEGATIVE, Urine Oxycodone Screen NEGATIVE, Urine Methadone Screen NEGATIVE, Urine Propoxyphene Screen NEGATIVE, Urine Barbiturates Screen NEGATIVE, Ur Tricyclic Antidepressants Screen NEGATIVE, Urine Phencyclidine Screen NEGATIVE, Urine Amphetamines Screen NEGATIVE, Urine Methamphetamines Screen NEGATIVE, Urine Benzodiazepines Screen NEGATIVE, Urine Cocaine Screen NEGATIVE, Urine Cannabinoids Screen NEGATIVE 06/04/19 03:17: White Blood Count 6.5, Red Blood Count 5.02, Hemoglobin 14.0, Hematocrit 42, Mean Corpuscular Volume 84, Mean Corpuscular Hemoglobin 28, Mean Corpuscular Hemoglobin Concent 33, Red Cell Distribution Width 12.9, Platelet Count 289, Mean Platelet Volume 9.8, Neutrophils (%) (Auto) 53, Lymphocytes (%) (Auto) 36, Monocytes (%) (Auto) 9, Eosinophils (%) (Auto) 2, Basophils (%) (Auto) 0, Neutrophils # (Auto) 3.5, Lymphocytes # (Auto) 2.4, Monocytes # (Auto) 0.6, Eosinophils # (Auto) 0.1, Basophils # (Auto) 0.0, Sodium Level 140, Potassium Level 4.0, Chloride Level 107, Carbon Dioxide Level 22, Anion Gap 11, Blood Urea Nitrogen 14, Creatinine 0.79, Estimat Glomerular Filtration Rate > 60, BUN/Creatinine Ratio 18, Glucose Level 98, Calcium Level 8.7, Corrected Calcium 8.5, Total Bilirubin 0.5, Aspartate Amino Transf (AST/SGOT) 15, Alanine Aminotransferase (ALT/SGPT) 20, Alkaline Phosphatase 92, Troponin I < 0.028, Total Protein 6.6, Albumin 4.2 A/P-Cardiology Plan Thank you for your consultation. Please call me if you have any questions. Crys Chand MD, FACP, FACC, FSCAI, FHRS, CCDS Interventional Cardiology Cardiac Electrophysiology Vascular Medicine and Endovascular Interventions Clinical Quality Measures DVT/VTE Risk/Contraindication: Risk Factor Score Per Nursin RFS Level Per Nursing on Admit: 2=Moderate Pardeep CHAND MD Jun 04, 2019 13:23
[2019-06-04] MEDS ORDERED: FLEC50TA PO (13:31)
[2019-06-04] MEDS ORDERED: ASPI325T32 PO (13:31)
[2019-06-04] MEDS ORDERED: NS IV 1000 ML 1,000 ML IV SCH (13:36)
--- NOTE | 2019-06-04 13:36 | History & Physicial-Cardiolgy ---
HPI-Cardiology Cardiology Consultation: Date of Consultation 06/04/19 Date of Admission Attending Physician Na Duran MD Admitting Physician Wilbert Casarez MD Consulting Physician Pardeep CHOPRA MD HPI: Time Seen by a Provider: 13:36 [facility]-Edjq[facility] Hx Patient Social History Alcohol Use: Occasionally Uses Recreational Drug Use: No Smoking Status: Never a Smoker 2nd Hand Smoke Exposure: No Recent Foreign Travel: No Recent Infectious Disease Expo: No Hospitalization with Isolation: Denies Past Medical History PMH As described under Assessment. Allergies and Home Medications Allergies Coded Allergies: Penicillins (Verified Allergy, Unknown, 08/05/05) Home Medications Aspirin 81 Mg Tablet.dr, 81 MG PO DAILY PRN for CHEST PAIN, (Reported) Aspirin 325 Mg Tablet.dr, 325 MG PO DAILY Prescribed by: ADIA GHOTRA on 06/04/19 1331 Flecainide Acetate 50 Mg Tablet, 50 MG PO BID Prescribed by: ADIA GHOTRA on 06/04/19 1331 Metoprolol Succinate 50 Mg Tab.er.24h, 50 MG PO DAILY, (Reported) Physical Exam-Cardiology Physical Exam Vital Signs/I&O 06/04/19 06/04/19 06/04/19 06/04/19 01:45 01:56 02:00 02:15 Pulse 76 81 84 Resp 28 13 B/P (MAP) 112/80 (91) 102/69 (80) 103/84 (90) Pulse Ox 98 97 96 95 O2 Delivery Room Air Room Air Room Air Room Air 06/04/19 06/04/19 06/04/19 06/04/19 02:30 02:45 03:00 03:31 Pulse 82 70 80 Resp 12 B/P (MAP) 103/73 (83) 92/67 (75) 102/73 (83) Pulse Ox 97 96 97 95 O2 Delivery Room Air Room Air Room Air Room Air 06/04/19 06/04/19 06/04/19 06/04/19 04:00 05:00 06:00 07:00 Pulse 73 92 75 89 Resp 17 22 B/P (MAP) 108/65 (79) 106/64 (78) 95/62 (73) 126/86 (99) Pulse Ox 96 97 O2 Delivery Room Air Room Air Room Air Room Air 06/04/19 06/04/19 06/04/19 06/04/19 07:00 08:00 08:00 08:00 Temp 36.4 Pulse 85 88 B/P (MAP) 117/82 (94) Pulse Ox 98 O2 Delivery Room Air Room Air 06/04/19 06/04/19 06/04/19 06/04/19 09:00 10:00 12:00 12:09 Temp 36.6 Pulse 79 86 80 97 Resp 20 B/P (MAP) 107/65 (79) 99/59 (72) 110/76 (87) Pulse Ox 99 O2 Delivery Room Air Room Air Room Air Capillary Refill : Less Than 3 Seconds Data Review Labs Laboratory Tests 06/03/19 23:15: White Blood Count 9.1, Red Blood Count 5.33, Hemoglobin 15.2, Hematocrit 45, Mean Corpuscular Volume 84, Mean Corpuscular Hemoglobin 29, Mean Corpuscular Hemoglobin Concent 34, Red Cell Distribution Width 12.7, Platelet Count 322, Mean Platelet Volume 9.7, Neutrophils (%) (Auto) 57, Lymphocytes (%) (Auto) 32, Monocytes (%) (Auto) 9, Eosinophils (%) (Auto) 2, Basophils (%) (Auto) 0, Neutrophils # (Auto) 5.2, Lymphocytes # (Auto) 2.9, Monocytes # (Auto) 0.8, Eosinophils # (Auto) 0.2, Basophils # (Auto) 0.0, Prothrombin Time 13.5, INR Comment 1.0, Activated Partial Thromboplast Time 28, Sodium Level 140, Potassium Level 3.8, Chloride Level 104, Carbon Dioxide Level 24, Anion Gap 12, Blood Urea Nitrogen 17, Creatinine 0.93, Estimat Glomerular Filtration Rate > 60, BUN/Creatinine Ratio 18, Glucose Level 106H, Calcium Level 9.6, Corrected Calcium , Magnesium Level 2.3, Total Bilirubin 0.5, Aspartate Amino Transf (AST/SGOT) 16, Alanine Aminotransferase (ALT/SGPT) 23, Alkaline Phosphatase 108, Total Creatine Kinase 128, Creatine Kinase MB 1.6, Myoglobin 35.0, Troponin I < 0.028, B-Type Natriuretic Peptide < 10.0, Total Protein 7.7, Albumin 4.9H, TSH [place] Testing 4.91 06/03/19 23:44: Urine Color YELLOW, Urine Clarity CLEAR, Urine pH 6.5, Urine Specific [place] <=1.005, Urine Protein NEGATIVE, Urine Glucose (UA) NEGATIVE, Urine Ketones NEGATIVE, Urine Nitrite NEGATIVE, Urine Bilirubin NEGATIVE, Urine Urobilinogen 0.2, Urine Leukocyte Esterase NEGATIVE, Urine RBC (Auto) NEGATIVE, Urine RBC NONE, Urine WBC NONE, Urine Crystals PRESENTH, Urine Amorphous Sediment RARE CRISTIAN URATESH, Urine Bacteria NEGATIVE, Urine Casts NONE, Urine Mucus NEGATIVE, Urine Culture Indicated NO, Urine Opiates Screen NEGATIVE, Urine Oxycodone Screen NEGATIVE, Urine Methadone Screen NEGATIVE, Urine Propoxyphene Screen NEGATIVE, Urine Barbiturates Screen NEGATIVE, Ur Tricyclic Antidepressants Screen NEGATIVE, Urine Phencyclidine Screen NEGATIVE, Urine Amphetamines Screen NEGATIVE, Urine Methamphetamines Screen NEGATIVE, Urine Benzodiazepines Screen NEGATIVE, Urine Cocaine Screen NEGATIVE, Urine Cannabinoids Screen NEGATIVE 06/04/19 03:17: White Blood Count 6.5, Red Blood Count 5.02, Hemoglobin 14.0, Hematocrit 42, Mean Corpuscular Volume 84, Mean Corpuscular Hemoglobin 28, Mean Corpuscular Hemoglobin Concent 33, Red Cell Distribution Width 12.9, Platelet Count 289, Mean Platelet Volume 9.8, Neutrophils (%) (Auto) 53, Lymphocytes (%) (Auto) 36, Monocytes (%) (Auto) 9, Eosinophils (%) (Auto) 2, Basophils (%) (Auto) 0, Neutrophils # (Auto) 3.5, Lymphocytes # (Auto) 2.4, Monocytes # (Auto) 0.6, Eosinophils # (Auto) 0.1, Basophils # (Auto) 0.0, Sodium Level 140, Potassium Level 4.0, Chloride Level 107, Carbon Dioxide Level 22, Anion Gap 11, Blood Urea Nitrogen 14, Creatinine 0.79, Estimat Glomerular Filtration Rate > 60, BUN/Creatinine Ratio 18, Glucose Level 98, Calcium Level 8.7, Corrected Calcium 8.5, Total Bilirubin 0.5, Aspartate Amino Transf (AST/SGOT) 15, Alanine Aminotransferase (ALT/SGPT) 20, Alkaline Phosphatase 92, Troponin I < 0.028, Total Protein 6.6, Albumin 4.2 Clinical Quality Measures DVT/VTE Risk/Contraindication: Risk Factor Score Per Nursin RFS Level Per Nursing on Admit: 2=Moderate Pardeep CHOPRA MD Jun 04, 2019 13:36
--- NOTE | 2019-06-04 13:39 | Cardiology Discharge Summary ---
Diagnosis/Chief Complaint Date of Admission Jun 04, 2019 at 00:15 Date of Discharge Discharge Summary Procedures None. Discussion & Recommendations Home Medications Reviewed patient Home Medication Reconciliation performed by pharmacy medication reconciliations line service technician and/or nursing. Patients Allergies have been reviewed. Discharge Home Medications: Reviewed and agree with Discharge Medication list on patient's Discharge Instruction sheet Clinical Quality Measures DVT/VTE Risk/Contraindication: Risk Factor Score Per Nursin RFS Level Per Nursing on Admit: 2=Moderate Pardeep CHOPRA MD Jun 04, 2019 13:39
== END 2019-06-04 14:15 | disposition home or self-care (01) ==
LOC: EDUNIT# 23:06 → ER 23:11 → ICU 06-04 00:15
PROVIDERS: ADMIT Internal Medicine Cardiovascular Disease; ATTEND Internal Medicine Cardiovascular Disease
DX: I48.91 Unspecified atrial fibrillation (principal); Z95.818 Presence of other cardiac implants and grafts; Z79.82 Long term (current) use of aspirin; Z79.899 Other long term (current) drug therapy; Z88.0 Allergy status to penicillin
CPT/HCPCS: 36415; 71045; 80053; 80306; 81000; 82550; 82553; 83735; 83874; 83880; 84443; 84484; 85025; 85610; 85730; 93005; 93041

== ENCOUNTER 2020-01-26 21:30 | Emergency (ER) | payer OTHER ==
[~2020-01-26] VITALS: Ht 182.8 cm; Wt 106.5 kg
[~2020-01-26 21:30] MED LIST changes: +ASPI-1238 PO; +ASPI325T32 PO; +FLEC50TA PO; -LIDOCAINE 1% INJ 20 ML 20 ML VIAL INJ ONE; -LIDOCAINE 1% INJ 20 ML 20 ML VIAL ONE; +METO50TA7 PO
[2020-01-26] MEDS ORDERED: LACTATED RINGERS 1,000 ML IV ONE ×2 (21:45→22:45)
[2020-01-26] MEDS ORDERED: meTOprolol 5 MG/5 ML (LOPRESSOR) VIAL IV ONE (21:45)
--- NOTE | 2020-01-26 21:52 | ED Cardiac General ---
History of Present Illness General Chief Complaint: Cardiac/General Problems Stated Complaint: AFIB Source: patient Exam Limitations: no limitations History of Present Illness Date Seen by Provider: Jan 26, 2020 Time Seen by Provider: 21:33 Initial Comments Patient presents to the ER by private conveyance home chief complaint that around 8:30 tonight, about an hour prior to arrival he started feeling a little breathless like his heart was racing. He does have a history of paroxysmal atrial fibrillation on aspirin, flecainide and metoprolol. They have been making changes to his dose in the past year as well as he has a loop recorder implanted. This is the third episode of atrial fibrillation with RVR he has been aware of. He is not having any chest pain nausea fevers sweats cough shortness of air. He does not take blood thinners. He follows with Dr. Chand. Primary care with Dr. Casarez. No history of coronary disease. He does not smoke drink or do drugs. No history of hypertension, hyperlipidemia or premature familial coronary disease. Allergies and Home Medications Allergies Coded Allergies: Penicillins (Verified Allergy, Unknown, 01/26/20) Home Medications Aspirin 325 Mg Tablet.dr, 325 MG PO DAILY Prescribed by: ADIA GHOTRA on 06/04/19 1331 Flecainide Acetate 50 Mg Tablet, 50 MG PO BID Prescribed by: ADIA GHOTRA on 06/04/19 1331 Metoprolol Succinate 50 Mg Tab.er.24h, 50 MG PO DAILY, (Reported) Patient Home Medication List Home Medication List Reviewed: Yes Review of Systems Review of Systems Constitutional: No chills, No fever EENTM: No Blurred Vision, No Double Vision Respiratory: Denies Cough, Denies Shortness of Air Cardiovascular: Denies Chest Pain, Denies Edema; Irregular Heart Rate, Palpitations Gastrointestinal: Denies Blood Streaked Stools, Denies Constipated, Denies Diarrhea Genitourinary: Denies Burning, Denies Discharge Musculoskeletal: No back pain, No joint pain Skin: No pruritus, No rash Psychiatric/Neurological: Denies Anxiety, Denies Depressed All Other Systems Reviewed Negative Unless Noted: Yes Past Czdovll-Yolttp-Gvgohj Hx Patient Social History Alcohol Use: Denies Use Recreational Drug Use: No Smoking Status: Never a Smoker 2nd Hand Smoke Exposure: No Recent Foreign Travel: No Contact w/Someone Who Travel: No Recent Hopitalizations: No Seasonal Allergies Seasonal Allergies: No Past Medical History Surgeries: Yes (LOOP RECORDER DEVICE IN PLACE) Respiratory: No Currently Using CPAP: No Currently Using BIPAP: No Cardiac: Yes Atrial Fibrillation Neurological: No Genitourinary: No Gastrointestinal: No Musculoskeletal: No Endocrine: No HEENT: No Cancer: No Psychosocial: No Integumentary: No Blood Disorders: No Physical Exam Vital Signs Vital Signs - First Documented 01/26/20 01/27/20 21:35 00:20 Temp 36.5 Pulse 125 Resp 18 B/P (MAP) 135/75 (95) Pulse Ox 98 O2 Delivery Room Air Capillary Refill : Height, Weight, BMI Height: 6'0.00" Weight: 240lbs. 0.0oz. 108.281874um; 33.38 BMI Method: General Appearance: No Apparent Distress, WD/WN HEENT: PERRL/EOMI, Pharynx Normal, Moist Mucous Membranes Neck: Full Range of Motion, Normal Inspection Respiratory: Normal Breath Sounds, No Accessory Muscle Use, No Respiratory Distress Cardiovascular: No Edema, Normal Peripheral Pulses, Irregularly Irregular, Tachycardia Gastrointestinal: Normal Bowel Sounds, Non Tender, Soft Neurologic/Psychiatric: Alert, Oriented x3, No Motor/Sensory Deficits Skin: Normal Color, Warm/Dry Progress/Results/Core Measures Results/Orders Lab Results Laboratory Tests Test 01/26/20 21:40 Range/Units White Blood Count 9.1 4.3-11.0 10^3/uL Red Blood Count 5.11 4.30-5.52 10^6/uL Hemoglobin 14.7 13.3-17.7 g/dL Hematocrit 44 40-54 % Mean Corpuscular Volume 85 80-99 fL Mean Corpuscular Hemoglobin 29 25-34 pg Mean Corpuscular Hemoglobin Concent 34 32-36 g/dL Red Cell Distribution Width 12.0 10.0-14.5 % Platelet Count 284 130-400 10^3/uL Mean Platelet Volume 9.7 9.0-12.2 fL Immature Granulocyte % (Auto) 0 % Neutrophils (%) (Auto) 60 42-75 % Lymphocytes (%) (Auto) 28 12-44 % Monocytes (%) (Auto) 9 0-12 % Eosinophils (%) (Auto) 2 0-10 % Basophils (%) (Auto) 0 0-10 % Neutrophils # (Auto) 5.5 1.8-7.8 10^3/uL Lymphocytes # (Auto) 2.6 1.0-4.0 10^3/uL Monocytes # (Auto) 0.9 0.0-1.0 10^3/uL Eosinophils # (Auto) 0.2 0.0-0.3 10^3/uL Basophils # (Auto) 0.0 0.0-0.1 10^3/uL Immature Granulocyte # (Auto) 0.0 0.0-0.1 10^3/uL Prothrombin Time 12.6 12.2-14.7 SEC INR Comment 0.9 0.8-1.4 Activated Partial Thromboplast Time 28 24-35 SEC Sodium Level 140 135-145 MMOL/L Potassium Level 3.8 3.6-5.0 MMOL/L Chloride Level 105 98-107 MMOL/L Carbon Dioxide Level 25 21-32 MMOL/L Anion Gap 10 5-14 MMOL/L Blood Urea Nitrogen 19 H 7-18 MG/DL Creatinine 1.14 0.60-1.30 MG/DL Estimat Glomerular Filtration Rate > 60 BUN/Creatinine Ratio 17 Glucose Level 97 70-105 MG/DL Calcium Level 9.4 8.5-10.1 MG/DL Corrected Calcium 8.5-10.1 MG/DL Magnesium Level 2.3 1.6-2.4 MG/DL Total Bilirubin 0.3 0.1-1.0 MG/DL Aspartate Amino Transf (AST/SGOT) 19 5-34 U/L Alanine Aminotransferase (ALT/SGPT) 27 0-55 U/L Alkaline Phosphatase 172 H 40-136 U/L Myoglobin 59.7 10.0-92.0 NG/ML Troponin I < 0.028 <0.028 NG/ML Total Protein 7.7 6.4-8.2 GM/DL Albumin 4.7 H 3.2-4.5 GM/DL My Orders Orders - BARBARA GARNER Cbc With Automated Diff (01/26/20 21:45) Magnesium (01/26/20 21:45) Chest 1 View, Ap/Pa Only (01/26/20 21:45) Ekg Tracing (01/26/20 21:45) Comprehensive Metabolic Panel (01/26/20 21:45) Myoglobin Serum (01/26/20 21:45) Protime With Inr (01/26/20 21:45) Partial Thromboplastin Time (01/26/20 21:45) O2 (01/26/20 21:45) Monitor-Rhythm Ecg Trace Only (01/26/20 21:45) Ed Iv/Invasive Line Start (01/26/20 21:45) Troponin I (01/26/20 21:45) Metoprolol Tartrate Injection (Lopressor (01/26/20 21:45) Lactated Ringers (Lr 1000 Ml Iv Solution (01/26/20 21:45) Diltiazem Injection (Cardizem Injection) (01/26/20 22:45) Lactated Ringers (Lr 1000 Ml Iv Solution (01/26/20 22:45) Medications Given in ED Current Medications Medications Dose Ordered Sig/Gino Route Start Time Stop Time Status Last Admin Dose Admin Diltiazem HCl 20 mg ONCE ONCE IVP 01/26/20 22:45 01/26/20 22:46 DC 01/26/20 23:28 20 MG Lactated Ringer's 1,000 ml @ 0 mls/hr Q0M ONCE IV 01/26/20 21:45 01/26/20 21:46 DC 01/26/20 21:50 1,000 MLS/HR Lactated Ringer's 1,000 ml @ 0 mls/hr Q0M ONCE IV 01/26/20 22:45 01/26/20 22:46 DC 01/26/20 23:27 1,000 MLS/HR Metoprolol Tartrate 5 mg ONCE ONCE IV 01/26/20 21:45 01/26/20 21:46 DC 01/26/20 21:50 5 MG Vital Signs/I&O 01/26/20 01/26/20 01/26/20 01/27/20 21:35 23:30 23:40 00:20 Temp 36.5 Pulse 125 10 67 70 Resp 18 18 B/P (MAP) 135/75 (95) 105/72 101/69 113/77 (80) Pulse Ox 98 97 O2 Delivery Room Air 01/27/20 00:00 Output Total 750 ml Balance -750 ml Progress Progress Note #1: Time: 21:50 Progress Note Plan to give him 5 of metoprolol IV and a bag of fluids. He is in A. fib with rapid ventricular response. He says in the past he has responded well to beta blockers. Progress Note #2: Time: 23:48 Progress Note After a single dose of metoprolol and Cardizem the patient's rate is under control in the 60s. Plan to let him follow-up outpatient next week with his seamer panty hose with return precautions. Initial ECG Impression Date: Jan 26, 2020 Initial ECG Impression Time: 21:44 Initial ECG Rate: 134 Initial ECG Rhythm: A Fib/Flutter Initial ECG Intervals: QT (471) Initial ECG Impression: Atrial Fibrillation w/RVR Comment Atrial fibrillation with rapid ventricular response. No clinically relevant ST changes. Diagnostic Imaging Diagonstic Imaging: Xray Plain Films/CT/US/NM/MRI: chest Comments NAME: MODE [facility] REC#: [id number] PT STATUS: REG ER : 10/24/1976 PHYSICIAN: BARBARA GARNER MD ADMIT DATE: 01/26/20/ER Signed Date of Exam:01/26/20 CT ABD/PELVIS WO(KIDNEY STONE) PROCEDURE: CT urinary tract, rule out kidney stone. TECHNIQUE: Multiple contiguous axial images were obtained through the abdomen and pelvis without the use of intravenous contrast. Auto Exposure Controls were utilized during the CT exam to meet ALARA standards for radiation dose reduction. INDICATION: Flank pain. Difficulty urinating. Hematuria. FINDINGS: The gallbladder is absent. The liver and bile ducts are normal. The spleen, pancreas and adrenals are normal. The kidneys, ureters and bladder are normal. There is no pelvic mass. No acute bowel abnormality is seen. There is no ascites. There is no acute bony abnormality. There is a 3.5 cm well-circumscribed cystic lesion seen in the left flank separate from any loop of bowel. This is stable compared to a study from 04/24/2016 and consistent with benign lesion. IMPRESSION: No acute abnormality is seen. Dictated by: Dictated on workstation # [id number] Dict: 01/26/202141 Trans: 01/26/202157 [facility] [id number] Interpreted by: VIRA POLANCO MD Electronically signed by: VIRA POLANCO MD 01/26/202157 Reviewed: Reviewed by Me Consults : Consulting Physician: Pardeep CHAND MD Consults Notes If we can get him under rate control with some metoprolol but then he would be okay with discharging the patient home to follow up outpatient. Departure Impression Primary Impression: Atrial fibrillation with RVR Disposition: HOME, SELF-CARE Condition: Improved Departure-Patient Inst. Decision time for Depature: 23:45 Referrals: Pardeep CHAND MD, DANIEL J MD (PCP/Family) Primary Care Physician Patient Instructions: Atrial Fibrillation (DC) Add. Discharge Instructions: If your rate returns to a high 120-140 range then please return to the ER for further evaluation. Continue taking your medications as prescribed. I recommend for the next couple days that you double the metoprolol to keep your rate under control. Drink fluids. Call your seamer panty hose see if you get a closer follow-up appointment. All discharge instructions reviewed with patient and/or family. Voiced understanding. Copy Copies To 1: Pardeep CHAND MD, TITUS J Jan 26, 2020 21:52
[2020-01-26 22:07] LABS: ALBUMIN 4.7 GM/DL (3.2-4.5)
[2020-01-26 22:09] LABS: CALCIUM 9.4 MG/DL (8.5-10.1)
[2020-01-26 22:10] LABS: GLUCOSE 97 MG/DL (70-105); TOTAL PROTEIN 7.7 GM/DL (6.4-8.2)
[2020-01-26 22:11] LABS: BASOPHILS % (AUTO) 0 % (0-10); CARBON DIOXIDE 25 MMOL/L (21-32); EOSINOPHILS # (AUTO) 0.2 10^3/uL (0.0-0.3); EOSINOPHILS % (AUTO) 2 % (0-10); HEMATOCRIT 44 % (40-54); HEMOGLOBIN 14.7 g/dL (13.3-17.7); LYMPHOCYTES # (AUTO) 2.6 10^3/uL (1.0-4.0); LYMPHOCYTES % (AUTO) 28 % (12-44); MEAN CORPUSCULAR HEMOGLOBIN 29 pg (25-34); MEAN CORPUSCULAR HGB CONC 34 g/dL (32-36); MEAN CORPUSCULAR VOLUME 85 fL (80-99); MEAN PLATELET VOLUME 9.7 fL (9.0-12.2); MONOCYTES # (AUTO) 0.9 10^3/uL (0.0-1.0); MONOCYTES % (AUTO) 9 % (0-12); NEUTROPHILS # (AUTO) 5.5 10^3/uL (1.8-7.8); NEUTROPHILS % (AUTO) 60 % (42-75); PLATELET COUNT 284 10^3/uL (130-400); WHITE BLOOD COUNT 9.1 10^3/uL (4.3-11.0)
[2020-01-26 22:12] LABS: BILIRUBIN,TOTAL 0.3 MG/DL (0.1-1.0)
[2020-01-26 22:13] LABS: ALKALINE PHOSPHATASE 172 U/L (40-136); CREATININE SERUM 1.14 MG/DL (0.60-1.30); GFR ESTIMATED > 60
[2020-01-26 22:14] LABS: BUN/CREATININE RATIO 17
[2020-01-26 22:16] LABS: ALANINE AMINOTRANSFERASE 27 U/L (0-55); INR 0.9 (0.8-1.4); MAGNESIUM 2.3 MG/DL (1.6-2.4); PROTHROMBIN TIME PATIENT 12.6 SEC (12.2-14.7)
[2020-01-26 22:25] LABS: CHLORIDE 105 MMOL/L (98-107); POTASSIUM 3.8 MMOL/L (3.6-5.0); SODIUM 140 MMOL/L (135-145)
[2020-01-27 00:20] VITALS: BP 113/77
--- NOTE | 2020-01-27 06:43 | Diagnostic Imaging Report ---
INDICATION: Chest pain. COMPARISON: 06/04/2019. FINDINGS: Single view of the chest demonstrates clear lungs bilaterally. The heart is normal. There is no pneumothorax. Osseous structures are stable. There is electronic capsule device overlying the left heart. IMPRESSION: Negative chest. Dictated by: Dictated on workstation # [id number]
== END 2020-01-27 00:20 | disposition home or self-care (01) ==
LOC: EDUNIT# 21:30 → ER 21:31
DX: I48.91 Unspecified atrial fibrillation (principal); Z88.0 Allergy status to penicillin; Z79.82 Long term (current) use of aspirin
CPT/HCPCS: 36415; 71045; 80053; 83735; 83874; 84484; 85025; 85610; 85730; 93005; 93041